=== PATIENT | male | born 1930 | race Caucasian/White ===

== ENCOUNTER → 2017-12-18 | Day surgery (SDC) | payer MEDICARE ==
[~2017-12-18] MED LIST: ASPI1TAB69 PO; BUPIVACAINE HCL PF 0.25% 30 ML VIAL ONE; BUPIVACAINE/EPINEPHRINE 0.5% PF 30 ML VIAL ONE; FLUT50SP EACH NARE; LOTR5CAP2 PO; MONT10TA4 PO; OMEG100037 PO; OMEP20TA93 PO; PROPOFOL 200 MG/20 ML AMP IV ONE; ROSU1TAB8 PO; ceFAZolin INJ 1,000 MG VIAL ONE
--- NOTE | 2017-12-18 11:02 | TN ---
cc: Gian Gramajo MD DATE OF SURGERY: 12/18/2017 DATE OF : 1930. PREOPERATIVE DIAGNOSIS: Sebaceous cyst, irritated, left posterior back 9 x 4 cm. PROCEDURE PERFORMED: Wide radical excision of inflamed sebaceous cyst 9 x 5 cm elliptical incision, double layer closure. ANESTHESIA: General. SURGEON: Dr. Gramajo. INDICATIONS: The patient is a pleasant 87-year-old gentleman who has an inflamed sebaceous cyst in the back and given antibiotics; it somewhat settled down. Plans were made for resection. PROCEDURE: The patient is taken to the operating room, placed in supine position. After anesthesia, he was placed in the right lateral decubitus position. The area had been previously marked. Make an elliptical incision measuring 9 x 5 cm after anesthetized with Marcaine solution and sharply excised. The specimen is about 2 cm deep and is completely removed without violating the inflamed sebaceous cyst. We then irrigate. Flaps are created superiorly and then laterally and inferiorly to reapproximate the deep layer with a 2-0 Vicryl, and the skin is reapproximated with 3-0 nylon interrupted. A sterile bandage is applied. The patient tolerated the procedure well, had no immediate postop complications. Gian Gramajo MD JDB/SB , 10:37 AM , 11:01 AM
== END | disposition home or self-care (01) ==
LOC: ESDC 08:44
PROVIDERS: ATTEND Surgery
DX: L72.3 Sebaceous cyst (principal)
CPT/HCPCS: 00300; 11406; 12034; 88304; J0690; J3010; 88305